=== PATIENT | female | born 1980 | race Two or more races ===

== ENCOUNTER 2018-12-13 23:00 | Emergency (ER) | payer SELFPAY ==
[~2018-12-13] VITALS: Ht 157.5 cm; Wt 79.4 kg
[2018-12-13 23:15] VITALS: BP 172/96
--- NOTE | 2018-12-13 23:58 | PHYS DOC ---
Past Medical History Past Medical History: Diabetes-Type II Past Surgical History: No Surgical History Alcohol Use: Occasionally Drug Use: None Adult General Chief Complaint Chief Complaint: FOOT INJURY PAIN HPI HPI Patient is a 38 year old [f__sex] who presents with [] Review of Systems Review of Systems Constitutional: Denies fever or chills [] Eyes: Denies change in visual acuity, redness, or eye pain [] HENT: Denies nasal congestion or sore throat [] Respiratory: Denies cough or shortness of breath [] Cardiovascular: No additional information not addressed in HPI [] GI: Denies abdominal pain, nausea, vomiting, bloody stools or diarrhea [] : Denies dysuria or hematuria [] Musculoskeletal: Denies back pain or joint pain [] Integument: Denies rash or skin lesions [] Neurologic: Denies headache, focal weakness or sensory changes [] Endocrine: Denies polyuria or polydipsia [] All other systems were reviewed and found to be within normal limits, except as documented in this note. Allergies Allergies Allergies Coded Allergies Type Severity Reaction Last Updated Verified No Known Drug Allergies 12/13/18 No Physical Exam Physical Exam Constitutional: Well developed, well nourished, no acute distress, non-toxic appearance. [] HENT: Normocephalic, atraumatic, bilateral external ears normal, oropharynx moist, no oral exudates, nose normal. [] Eyes: PERRLA, EOMI, conjunctiva normal, no discharge. [] Neck: Normal range of motion, no tenderness, supple, no stridor. [] Cardiovascular:Heart rate regular rhythm, no murmur [] Lungs & Thorax: Bilateral breath sounds clear to auscultation [] Abdomen: Bowel sounds normal, soft, no tenderness, no masses, no pulsatile masses. [] Skin: Warm, dry, no erythema, no rash. [] Back: No tenderness, no CVA tenderness. [] Extremities: No tenderness, no cyanosis, no clubbing, ROM intact, no edema. [] Neurologic: Alert and oriented X 3, normal motor function, normal sensory function, no focal deficits noted. [] Psychologic: Affect normal, judgement normal, mood normal. [] Current Patient Data Vital Signs Vital Signs Date Time Temp Pulse Resp B/P (MAP) Pulse Ox O2 Delivery O2 Flow Rate FiO2 12/13/18 23:15 97.9 89 16 172/96 (121) 98 Room Air 97.9 EKG EKG [] Radiology/Procedures Radiology/Procedures [] Course & Med Decision Making Course & Med Decision Making Pertinent Labs and Imaging studies reviewed. (See chart for details) [] Dragon Disclaimer Dragon Disclaimer This electronic medical record was generated, in whole or in part, using a voice recognition dictation system. Departure Departure Impression: Primary Impression: Fracture of distal phalanx of toe of right foot Disposition: HOME, SELF-CARE Condition: STABLE Referrals: UNKNOWN PCP NAME (PCP) WILLIS BEE DPM Patient Instructions: Hard-Soled Shoe, Toe Fracture, [id number] Additional Instructions: Take over the counter Tylenol or Ibuprofen for pain or discomfort. SUNSHINE MONACO DO Dec 13, 2018 23:58
[2018-12-14] MEDS ORDERED: ONDANSETRON ODT 4 MG TAB.RAPDIS. PO ONE (00:15)
--- NOTE | 2018-12-14 05:49 | RAD ---
RIGHT FOOT AP LATERAL OBLIQUE Clinical Indication: Pain to fourth digit with swelling and ecchymosis. Comparison: None. Findings: Only seen on the oblique view, there is age indeterminant punctate chip fracture at the medial base of the fourth toe distal phalanx. Otherwise no acute fracture. The bony alignment is normal. Mineralization is normal. No bony erosion. Mild dorsal soft tissue swelling of the distal foot. IMPRESSION: Age-indeterminate punctate chip fracture at the medial base of the fourth toe distal phalanx. Electronically signed by: Abrahan Bynum MD (12/14/2018 5:46 AM) [facility]
== END 2018-12-14 00:15 | disposition home or self-care (01) ==
LOC: ER 23:00
DX: S92.531A Displaced fracture of distal phalanx of right lesser toe(s), initial encounter for closed fracture (principal); E11.9 Type 2 diabetes mellitus without complications; W51.XXXA Accidental striking against or bumped into by another person, initial encounter; Y93.89 Activity, other specified; Y92.89 Other specified places as the place of occurrence of the external cause; Y99.8 Other external cause status
CPT/HCPCS: 73630; 99284